=== PATIENT | male | born 1970 | race Caucasian/White ===

== ENCOUNTER 2025-02-14 12:32 | Outpatient (AMB) | payer BC, SELFPAY ==
--- NOTE | 2025-02-14 12:40 | MHC.OFFVIS ---
Vital Signs 02/14/25 12:42 Height 6 ft 3 in Weight 250 lb BMI 31.2 BP 118/76 Blood Pressure Location Lt brachial Position Sitting Pulse 80 Intake Visit Reasons: Colonoscopy Screening Intake Note: Patient new consult for pre colonoscopy screening. Patient cc: loose stool. Denies any other GI issues. Planograph Operator Required: No Accompanied by: Self / Same As Patient Allergies No Known Allergies Allergy (Verified 02/14/25 12:35) Medication List - Last Reconciled 02/14/25 by Ledy Bee CNP No Known Home Meds HPI HPI Colonoscopy Screening: Details: Patient is a 54-year-old male with PMH of obesity. Referred by PCP for pre colonoscopy screening 1st colo, no other Reports intermittent loose stools for several years, described as occurring a couple times daily, with stool consistency corresponding to Canmer 5?6. Notes heartburn only occasionally, typically after spicy foods or alcohol (wine), resolving spontaneously without medication. Notable cardiac history includes childhood arrhythmia, not requiring ongoing restrictions since adolescence, and one episode of tachycardia (rate ~160) recently, with ongoing outpatient cardiology evaluation (pending Holter monitoring). History of duodenal polypectomy at age 10, pathology reportedly benign. No other chronic conditions or treatments reported that would impact GI care. Patient denies: fever/chills, n/v, appetite changes, regurgitation,dysphasia, unintentional wt loss, ab pain or melena/hematochezia. Social hx: -diet: Morning eggs and variable items; leafy green salad (most lunches); dinners of chicken, potatoes, steak; recognizes good fiber intake -ETOH use, approx 1x/week -denies recreational drug use -non-smoker - family hx as below -denies personal hx of CA -tolerated anesthesia in the past without difficulty. [facility] Medical History (Updated 02/14/25 @ 13:18 by Ledy Bee CNP) Colon cancer screening Loose stools Surgical History Hx of rectal polypectomy Family History Father Lymphoma Bladder cancer Prostate cancer HTN (hypertension) Social History Household Members: Family Alcohol intake: current Alcohol intake frequency: holidays/special occasions only Patient Tobacco Use Status: Never used Tobacco Review of Systems Const Reports as per [facility] ENT Reports as per HPI Card Reports as per HPI Resp Reports as per [facility] GI Reports as per [facility] Reports as per HPI Physical Exam Vital Signs: Last Vital Signs Pulse 80 02/14/25 12:42 BP 118/76 02/14/25 12:42 BMI result Body Mass Index 31.2 Const General: healthy appearing, no acute distress and well developed Nutritional Appearance: average body habitus Orientation/consciousness: patient oriented x3 HEENT Head: Yes normal to inspection, Yes normocephalic and Yes atraumatic Face and sinus: Yes normal facial exam Eyes General: appearance normal, both eyes and all related structures Neck Neck: Yes normal visual inspection Resp Effort & Inspection: normal respiratory effort, able to speak in complete sentences, no tracheal deviation and symmetric chest movement Cardio Jugular venous distension: no JVD Rate: regular rate Rhythm: regular rhythm Heart sounds: S1 normal heart sound present, S2 normal heart sound present, no gallops and no murmurs GI Inspection: Yes normal to inspection, No distended, Yes obesity and Yes other (faint midline surgical scar) Palpation (GI): Soft to palpation, not firm, nontender and No hepatosplenomegaly present Auscultation: normal bowel sounds Neuro General: patient oriented x3 Gait exam (Neuro): Normal gait present Psych Appearance: grossly normal Mental Status: mental status grossly normal Speech and movement: Normal speech and movement present Affect: normal affect Attitude: cooperative Thought process: Normal thought process present Thought content: Normal thought content present Insight: Good insight present (Psych) Judgement: Good judgement present (Psych) Assessment & Plan Assessment & Plan (1) Loose stools: Code(s): R19.5 - Other fecal abnormalities Category: Medical Plan: Chronicity, Canmer 5?6, absence of alarm features, pattern may be dietary/hydration-related; organic process considered low likelihood but to be ruled out. DDX: IBS?D VS Malabsorption (celiac dz) VS Microscopic colitis VS Early IBD VS Colorectal neoplasia (unlikely based on age/symptoms/history, but screening indicated) Additional Testing: - Pending recent labs: need to confirm LFTs, renal function, review other results - Add fasting CMP including LFTs, renal - Stool testing for celiac dz and inflammatory markers as adjunctive workup Medication Management: - None initiated currently Lifestyle Recommendations: - Increase daily water intake - Gradually reduce daily coffee consumption, substituting with water as tolerated - Maintain current fiber intake (adequate per diet recall) Follow-Up: - Return in 8 weeks or sooner if symptom changes/new alarm sx; review labs and stool study results (2) Colon cancer screening: Code(s): Z12.11 - Encounter for screening for malignant neoplasm of colon Category: Medical Plan: Age-appropriate screening; family history significant for non-GI malignancies but with no direct colon ca risk Additional Testing: - Schedule screening colonoscopy (pending holter results due to past arrhythmia/tachycardia events) Medication Management: - Prep: Miralax split dosing + 4 tabs bisacodyl, 64 oz Gatorade (not red/blue/purple); Rx sent to pharmacy Lifestyle Recommendations: - Clear liquid diet day before procedure - NPO x4 hrs prior to procedure day of Follow-Up: - Colonoscopy to be scheduled (may be into new year) - Await cardiac eval/clearance before procedure - Provide written instructions and education packet Plan Follow-up 8 weeks or sooner as needed Time: I spent a total of 30 minutes on the date of encounter which includes: Preparing to see the patient (reviewed previous documentation, test results and medical history) Performing a medically appropriate exam and/or evaluation Ordering medications, tests, and procedures Documenting clinical information in the health record Orders: Orders Comprehensive Stone. Panel Fast Today R19.5 - Other fecal abnormalities Transglutaminase IgA Today R19.5 - Other fecal abnormalities Calprotectin, Fecal Today R19.5 - Other fecal abnormalities C Reactive Protein Today R19.5 - Other fecal abnormalities Referrals GI Procedure Notification R19.5 - Other fecal abnormalities, Z12.11 - Encounter for screening for malignant neoplasm of colon Medications: New polyethylene glycol 3350 (Miralax) per colonoscopy prep instructions 238 grams PO ONCE 238 grams 0RF bisacodyl Take per colonoscopy instructions 5 mg PO ONCE 4 tabs 0RF Coding Level of Care Code New Pt New Pt Level 3 (66684) Patient Type New Diagnoses Loose stools R19.5 Colon cancer screening Z12.11
[2025-02-14 12:42] VITALS: BP 118/76; PULSE 80; BMI 31.2
--- OUTSIDE RECORDS SUMMARY | 2025-02-14 17:20 | XMS_ITS | Patient Health Record ---
Author Organization [facility] Address [address] [place] [address] Care Team Providers Care Coremaker Bench Name Role Phone SAMI CARRION Primary Care Provider Julianna Elena Unavailable [phone] Allergies No Known Allergies Reason For Referral Reason C-scope Please alec luate and treat Diagnosis 1 Encounter for screen ing for malignant neoplasm of colon (Z12.11) Referral Organization [facility] Referring Provider First Name Julianna Referring Provider Last Name Kassy Referred Provider Specialty Gastroentero logy General Notes Please call the [facility] ent to schedule the appointment, [facility]. Please contact them at [phone], Kristin Medrano 10/09/2024 04:13:13 PM > Referral Priority Routine Reason Evaluation and manag ement Loop recorder for 14 days Diagnosis 1 Palpitation (R00.2) Referral Organization [facility] Referring Provider First Name Julianna Referring Provider Last Name Kassy Referred Provider Specialty Cardiology General Notes Referral sent to [facility] ([address] [place] [phone] ) - Office will call patient for scheduling. Basia Latraya 10/05/2024 11:57:16 AM > Referral Priority Urgent Immunizations Vaccine Route Administration Date Status Comme nts COVID Oscar Unknown 08/24/2020 Administered COVID Moderna Unknown 04/05/2021 Administered COVID Moderna Unknown 10/06/2021 Administered Social History Tobacco Use: Social History Observation Description Date Details (start date - stop date) Never Smoker NA - NA Tobacco Use/Smoking Question Answer Notes Are you a nonsmoker AUDIT-C (Standard) Question Answer Notes Did you have a drink containing alcohol in the p ast year? No Points 0 Interpretation Negative Problems Problem Type SNOMED Code ICD Code Onset Dates Problem Status W/U Status Risk Notes Problem Obesity due to excess calories (675156428) Other obesity due to excess calories (E66.09) Active confirmed Vital Signs Heart Rate 78 /min 10/05/2024 Temperature 97.4 degrees Fahrenheit 10/05/2024 Oximetry 98 % 10/05/2024 Blood pressure diastolic 78 mm Hg 10/05/2024 Height 6'3'' in 10/05/2024 Blood pressure systolic 120 mm Hg 10/05/2024 Weight 242.4 lbs 10/05/2024 BMI 30.29 kg/m2 10/05/2024 Encounters Encounter Location Date Provider Diagnosis [facility] [address] [place] [address] 10/05/2024 Julianna Elena Encounter for screen ing for cardiovascular disorders Z13.6 ; Annual visit for general adult medical examination without abnormal findings Z00.00 ; Palpitation R00.2 ; Other obesity due to excess calories E66.09 ; Dietary counseling and surveillance Z71.3 and Encounter for screening for malignant neoplasm of colon Z12.11 [facility] [address] [place] [address] 07/23/2024 SAMI CARRION Assessments Encounter Date Diagnosis (ICD Code) Assessment Notes Treatment Notes Treatment Clinical Notes Section Notes 10/05/2024 Encounter for screening for cardiovascular disorders (ICD-10 - Z13.6) Mr Polanco is a 54-year-old gentleman here for annual physical examination. Plan is as follows: Palpitation. Heart is in the regular rate and rhythm. Heart rate in office today is within normal limits. He did have 2 days of persistent tachycardia at rest of 141. He does have a watch that is connected to his phone and it did show an EKG concerning for 1 episode of A. fib however that could also be inaccurate but given that he does mention he has history of cardiac arrhythmia During his childhood that was Monitored by the pediatric clinical dietician At that time, unaware of the type of arrhythmia but does mention that he was prevented from caffeinated beverages thus I will go ahead and check TSH, magnesium and obtain a loop recorder. Indicates she is in the office today with heart rate of 67 bpm, no ST elevation or depression. No bundle branch block Class 1 obesity. Advised dietary restrictions and regimental exercise. Goal is to lose 5-6 lbs a month. Immunizations. He is up-to-date on his COVID vaccinations. Recommended shingles vaccine. Screening for colon cancer. Refer patient to GI for colonoscopy. Prostate cancer screening. He had a PSA done through his insurance recently and it does show a level of 0.66 within range, JACQUIE is remarkable for mildly enlarged prostate. Smooth and no nodules are noted. Recent blood work that was done through his insurance about 3 weeks ago has been reviewed with the patient's comp is no concern with the glucose within normal range same applies for kidney function GFR of 90 and electrolytes. Lipid panel ranges changes from the insurance lab compared to our labs with a total cholesterol of 232 and LDL of 142 thus I will repeat lipid panel again. HCP- Traci [phone]. MOLST form provided Screening blood work before next appointment General health concerns discussed with patient. General concerns have been discussed I have rendered the services for this patient under direct supervision of Dr. Carrion, who did not see the patient but was available upon request 10/05/2024 Annual visit for general adult medical examination without abnormal findings (ICD-10 - Z00.00) Mr Polanco is a 54-year-old gentleman here for annual physical examination. Plan is as follows: Palpitation. Heart is in the regular rate and rhythm. Heart rate in office today is within normal limits. He did have 2 days of persistent tachycardia at rest of 141. He does have a watch that is connected to his phone and it did show an EKG concerning for 1 episode of A. fib however that could also be inaccurate but given that he does mention he has history of cardiac arrhythmia During his childhood that was Monitored by the pediatric clinical dietician At that time, unaware of the type of arrhythmia but does mention that he was prevented from caffeinated beverages thus I will go ahead and check TSH, magnesium and obtain a loop recorder. Indicates she is in the office today with heart rate of 67 bpm, no ST elevation or depression. No bundle branch block Class 1 obesity. Advised dietary restrictions and regimental exercise. Goal is to lose 5-6 lbs a month. Immunizations. He is up-to-date on his COVID vaccinations. Recommended shingles vaccine. Screening for colon cancer. Refer patient to GI for colonoscopy. Prostate cancer screening. He had a PSA done through his insurance recently and it does show a level of 0.66 within range, JACQUIE is remarkable for mildly enlarged prostate. Smooth and no nodules are noted. Recent blood work that was done through his insurance about 3 weeks ago has been reviewed with the patient's comp is no concern with the glucose within normal range same applies for kidney function GFR of 90 and electrolytes. Lipid panel ranges changes from the insurance lab compared to our labs with a total cholesterol of 232 and LDL of 142 thus I will repeat lipid panel again. HCP- Traci [phone]. MOLST form provided Screening blood work before next appointment General health concerns discussed with patient. General concerns have been discussed I have rendered the services for this patient under direct supervision of Dr. Carrion, who did not see the patient but was available upon request 10/05/2024 Palpitation (ICD-10 - R00.2) Mr Polanco is a 54-year-old gentleman here for annual physical examination. Plan is as follows: Palpitation. Heart is in the regular rate and rhythm. Heart rate in office today is within normal limits. He did have 2 days of persistent tachycardia at rest of 141. He does have a watch that is connected to his phone and it did show an EKG concerning for 1 episode of A. fib however that could also be inaccurate but given that he does mention he has history of cardiac arrhythmia During his childhood that was Monitored by the pediatric clinical dietician At that time, unaware of the type of arrhythmia but does mention that he was prevented from caffeinated beverages thus I will go ahead and check TSH, magnesium and obtain a loop recorder. Indicates she is in the office today with heart rate of 67 bpm, no ST elevation or depression. No bundle branch block Class 1 obesity. Advised dietary restrictions and regimental exercise. Goal is to lose 5-6 lbs a month. Immunizations. He is up-to-date on his COVID vaccinations. Recommended shingles vaccine. Screening for colon cancer. Refer patient to GI for colonoscopy. Prostate cancer screening. He had a PSA done through his insurance recently and it does show a level of 0.66 within range, JACQUIE is remarkable for mildly enlarged prostate. Smooth and no nodules are noted. Recent blood work that was done through his insurance about 3 weeks ago has been reviewed with the patient's comp is no concern with the glucose within normal range same applies for kidney function GFR of 90 and electrolytes. Lipid panel ranges changes from the insurance lab compared to our labs with a total cholesterol of 232 and LDL of 142 thus I will repeat lipid panel again. HCP- Traci [phone]. MOLST form provided Screening blood work before next appointment General health concerns discussed with patient. General concerns have been discussed I have rendered the services for this patient under direct supervision of Dr. Carrion, who did not see the patient but was available upon request 10/05/2024 Other obesity due to excess calories (ICD-10 - E66.09) Mr Polanco is a 54-year-old gentleman here for annual physical examination. Plan is as follows: Palpitation. Heart is in the regular rate and rhythm. Heart rate in office today is within normal limits. He did have 2 days of persistent tachycardia at rest of 141. He does have a watch that is connected to his phone and it did show an EKG concerning for 1 episode of A. fib however that could also be inaccurate but given that he does mention he has history of cardiac arrhythmia During his childhood that was Monitored by the pediatric clinical dietician At that time, unaware of the type of arrhythmia but does mention that he was prevented from caffeinated beverages thus I will go ahead and check TSH, magnesium and obtain a loop recorder. Indicates she is in the office today with heart rate of 67 bpm, no ST elevation or depression. No bundle branch block Class 1 obesity. Advised dietary restrictions and regimental exercise. Goal is to lose 5-6 lbs a month. Immunizations. He is up-to-date on his COVID vaccinations. Recommended shingles vaccine. Screening for colon cancer. Refer patient to GI for colonoscopy. Prostate cancer screening. He had a PSA done through his insurance recently and it does show a level of 0.66 within range, JACQUIE is remarkable for mildly enlarged prostate. Smooth and no nodules are noted. Recent blood work that was done through his insurance about 3 weeks ago has been reviewed with the patient's comp is no concern with the glucose within normal range same applies for kidney function GFR of 90 and electrolytes. Lipid panel ranges changes from the insurance lab compared to our labs with a total cholesterol of 232 and LDL of 142 thus I will repeat lipid panel again. HCP- Traci [phone]. MOLST form provided Screening blood work before next appointment General health concerns discussed with patient. General concerns have been discussed I have rendered the services for this patient under direct supervision of Dr. Carrion, who did not see the patient but was available upon request 10/05/2024 Dietary counseling and surveillance (ICD-10 - Z71.3) Mr Polanco is a 54-year-old gentleman here for annual physical examination. Plan is as follows: Palpitation. Heart is in the regular rate and rhythm. Heart rate in office today is within normal limits. He did have 2 days of persistent tachycardia at rest of 141. He does have a watch that is connected to his phone and it did show an EKG concerning for 1 episode of A. fib however that could also be inaccurate but given that he does mention he has history of cardiac arrhythmia During his childhood that was Monitored by the pediatric clinical dietician At that time, unaware of the type of arrhythmia but does mention that he was prevented from caffeinated beverages thus I will go ahead and check TSH, magnesium and obtain a loop recorder. Indicates she is in the office today with heart rate of 67 bpm, no ST elevation or depression. No bundle branch block Class 1 obesity. Advised dietary restrictions and regimental exercise. Goal is to lose 5-6 lbs a month. Immunizations. He is up-to-date on his COVID vaccinations. Recommended shingles vaccine. Screening for colon cancer. Refer patient to GI for colonoscopy. Prostate cancer screening. He had a PSA done through his insurance recently and it does show a level of 0.66 within range, JACQUIE is remarkable for mildly enlarged prostate. Smooth and no nodules are noted. Recent blood work that was done through his insurance about 3 weeks ago has been reviewed with the patient's comp is no concern with the glucose within normal range same applies for kidney function GFR of 90 and electrolytes. Lipid panel ranges changes from the insurance lab compared to our labs with a total cholesterol of 232 and LDL of 142 thus I will repeat lipid panel again. HCP- Traci [phone]. MOLST form provided Screening blood work before next appointment General health concerns discussed with patient. General concerns have been discussed I have rendered the services for this patient under direct supervision of Dr. Carrion, who did not see the patient but was available upon request 10/05/2024 Encounter for screening for malignant neoplasm of colon (ICD-10 - Z12.11) Mr Polanco is a 54-year-old gentleman here for annual physical examination. Plan is as follows: Palpitation. Heart is in the regular rate and rhythm. Heart rate in office today is within normal limits. He did have 2 days of persistent tachycardia at rest of 141. He does have a watch that is connected to his phone and it did show an EKG concerning for 1 episode of A. fib however that could also be inaccurate but given that he does mention he has history of cardiac arrhythmia During his childhood that was Monitored by the pediatric clinical dietician At that time, unaware of the type of arrhythmia but does mention that he was prevented from caffeinated beverages thus I will go ahead and check TSH, magnesium and obtain a loop recorder. Indicates she is in the office today with heart rate of 67 bpm, no ST elevation or depression. No bundle branch block Class 1 obesity. Advised dietary restrictions and regimental exercise. Goal is to lose 5-6 lbs a month. Immunizations. He is up-to-date on his COVID vaccinations. Recommended shingles vaccine. Screening for colon cancer. Refer patient to GI for colonoscopy. Prostate cancer screening. He had a PSA done through his insurance recently and it does show a level of 0.66 within range, JACQUIE is remarkable for mildly enlarged prostate. Smooth and no nodules are noted. Recent blood work that was done through his insurance about 3 weeks ago has been reviewed with the patient's comp is no concern with the glucose within normal range same applies for kidney function GFR of 90 and electrolytes. Lipid panel ranges changes from the insurance lab compared to our labs with a total cholesterol of 232 and LDL of 142 thus I will repeat lipid panel again. HCP- Traci [phone]. MOLST form provided Screening blood work before next appointment General health concerns discussed with patient. General concerns have been discussed I have rendered the services for this patient under direct supervision of Dr. Carrion, who did not see the patient but was available upon request Plan Of Treatment Pending Test Test Name Order Date [id number] 10/05/2024 CBC with Diff, Platelet, [id number] 09/20 TSH+Free [id number] 10/05/2024 Lipid Panel-[id number] 10/05/2024 Next Appt Details Provider Name:SAMI CARRION , 10/15/2025 08:00:00 AM, [address] [place] [address] [place], [id number], Insurance Providers Payer Name Payer Address Payer Phone Subscriber Number Group Number Insured Name Patient Relationship to Insured Coverage Start Date Coverage End Date [facility] [address] [place] [address] [id number] Doyle León Self - patient is the insured Medical (General) History Surgical History Surgery Date(Month/Year) polypectomy
== END 2025-02-14 13:16 | disposition home or self-care (01) ==
LOC: HO.HGI 12:32
PROVIDERS: Visit Provider Nurse Practitioner Family
DX: Z01.818 Encounter for other preprocedural examination (principal); Z12.11 Encounter for screening for malignant neoplasm of colon; R19.5 Other fecal abnormalities
CPT/HCPCS: S0285